=== PATIENT | female | born 2000 | race Caucasian/White ===

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

== ENCOUNTER 2018-02-25 21:44 | Emergency (ER) ==
[2018-02-25 21:58] VITALS: BP 111/70; TEMP 98.5; BMI 26.2
--- NOTE | 2018-02-25 23:33 | CT ---
EXAM: CT abdomen pelvis without intravenous contrast 02/25/2018. Sagittal and coronal reformatted i mages obtained HISTORY: Constipation COMPARISON: 11/09/2017 FINDINGS: The liver, gallbladder, adrenal glands and kidneys show no acute abnormality. The spleen and pancreas show no acute process. There is no bowel obstruction. The visualized portion of the appendix appears within normal limits. Unremarkable urinary bladder. Trace nonspecific free fluid. IMPRESSION: 1. No urinary or bowel obstruction. 2. The visualized portion of the appendix appears within normal limits 3. Trace nonspecific free fluid in the pelvis. 4. No CT evidence of constipation. No acute inflammatory process identified within the limitation o f a noncontrast enhanced examination.
--- NOTE | 2018-02-25 23:45 | ED.PDOC ---
General ED Provider: Dr. GIO FISHER-ER Chief Complaint: Constipation Stated Complaint: im having trouble with pooping Time Seen by Physician: 23:43 Mode of Arrival: Walk-In Information Source: Patient Exam Limitations: No limitations Nursing and Triage Documentation Reviewed and Agree: Yes Does patient meet sepsis criteria?: No System Inflammatory Response Syndrome: Not Applicable Sepsis Protocol: For patient's 13 years and over: Temp is 96.8 and below OR 101 and greater Pulse >90 BPM Resp >20/minute Acutely Altered Mental Status Are patient's symptoms suggestive of a new infection, such as: -Pneumonia -Skin, Soft Tissue -Endocarditis -UTI -Bone, Joint Infection -Implantable Device -Acute Abdominal Infection -Wound Infection -Meningitis -Blood Stream Catheter Infection -Unknown GI Complaint Exam - Abdominal Pain Complaint/Exam Onset: Gradual Symptoms Are: Still present Timing: Constant Initial Severity: Moderate Current Severity: Moderate Location of Pain: Diffuse Character: Reports: Dull, Aching Aggravating: Reports: None Associated Signs and Symptoms: Reports: Constipation. Denies: Diaphoresis, Fever, Cough, Chest pain, Dizziness, Back pain, Blood in stool, Dysuria, Urinary frequency, Decreased urine output, Decreased appetite, Vaginal bleeding , Vaginal discharge, Nausea, Vomiting, Diarrhea, Sore throat, Decreased activity Ovarian Torsion Risk Factors: Reports: Reproductive age Surgical Obstruction Risk Factors: Reports: None Abdominal Findings: Present: None Differential Diagnoses: Constipation Review of Systems - Review Of Systems Constitutional: Reports: No symptoms Eyes: Reports: No symptoms Ears, Nose, Mouth, Throat: Reports: No symptoms, Throat swelling Respiratory: Reports: No symptoms Cardiac: Reports: No symptoms GI: Reports: Abdominal pain, Constipated : Reports: No symptoms Musculoskeletal: Reports: No symptoms Skin: Reports: No symptoms Neurological: Reports: No symptoms Endocrine: Reports: No symptoms Hematologic/Lymphatic: Reports: No symptoms All Other Systems: Reviewed and Negative Past Medical History - Past Medical History Previously Healthy: Yes Endocrine: Reports: None Cardiovascular: Reports: None Respiratory: Reports: Pneumonia Hematological: Reports: None Gastrointestinal: Reports: None Genitourinary: Reports: None Neuro/Psych: Reports: None Musculoskeletal: Reports: None Cancer: Reports: None Last Menstrual Period: [id number] - Surgical History General Surgical History: Reports: None - Family History Family History: Reports: None - Social History Smoking Status: Current some day smoker Hx Substance Use: Yes (occasional cannabis) Alcohol Screening: None - Immunizations Tetanus Shot up to Date: Yes Physical Exam - Physical Exam Appearance: Well-appearing, No pain distress, Well-nourished Eyes: DEVYN, EOMI, Conjunctiva clear ENT: Ears normal, Nose normal, Oropharynx normal Neck: Supple Respiratory: Airway patent, Breath sounds clear, Breath sounds equal, Respirations nonlabored Cardiovascular: RRR, Pulses normal, No rub, No murmur GI/: Soft Musculoskeletal: Normal strength, ROM intact, No edema, No calf tenderness Skin: Warm, Dry, Normal color Neurological: Sensation intact, Motor intact, Reflexes intact, Cranial nerves intact, Alert, Oriented Psychiatric: Affect appropriate, Mood appropriate Interpretation - Radiology Interpretation Radiology Interpretation By: Radiologist Radiology Results: Negative Exam Interpreted: CT Scan Critical Care Note - Critical Care Note Total Time (mins): 0 Course - Course Hematology/Chemistry: 02/25/18 22:13 Orders, Labs, Meds: Lab Review 02/25/18 02/25/18 02/25/18 22:13 22:13 22:13 WBC 7.71 RBC 4.08 L Hgb 12.5 Hct 37.3 MCV 91.4 MCH 30.6 MCHC 33.5 RDW Coeff of [place] 11.9 Plt Count 242 Immature Gran % (Auto) 0.4 Neut % (Auto) 53.3 Lymph % (Auto) 31.8 [place] % (Auto) 11.5 H Eos % (Auto) 2.6 Baso % (Auto) 0.4 Immature Gran # (Auto) 0.0 Neut # (Auto) 4.1 Lymph # (Auto) 2.5 [place] # (Auto) 0.9 Eos # (Auto) 0.2 Baso # (Auto) 0.0 TSH 1.710 Serum , Qual Negative Orders Category Date Time Status CBC W/ AUTO DIFF Stat LAB 02/25/18 22:13 Completed SERUM Stat LAB 02/25/18 22:13 Completed THYROID STIMULATING HORMONE Stat LAB 02/25/18 22:[address] ABDOMEN/PELVIS WO CONTRAST Stat RADS 02/25/18 22:05 Completed Vital Signs: Temp Pulse Resp BP Pulse Ox 02/25/18 21:45 98.5 F 68 16 111/70 98 Departure - Departure Time of Disposition: 23:45 Disposition: HOME SELF-CARE Discharge Problem: Constipation Instructions: High Fiber Diet (ED), Constipation (ED) Condition: Good Pt referred to PMD for follow-up: No IPMP verified?: No Additional Instructions: miralax 17gra in 8oz of juice bid---f/u with pcsp Allergies/Adverse Reactions: Allergies azithromycin Adverse Reaction (Verified 02/25/18 21:55) Rash Home Medications: Ambulatory Orders 1 [No Reported Medications] 02/25/18 Disposition Discussed With: Patient
== END 2018-02-25 23:50 | disposition home or self-care (01) ==
LOC: ED 21:44
DX: K59.00 Constipation, unspecified (principal); F17.210 Nicotine dependence, cigarettes, uncomplicated
CPT/HCPCS: 36415; 84443; 84703; 85025; 99282

== ENCOUNTER 2018-06-23 09:10 | Emergency (ER) ==
[2018-06-23 09:14] VITALS: BP 134/81; TEMP 97.7; BMI 29.2
--- NOTE | 2018-06-23 09:42 | ED.PDOC ---
General ED Provider: Dr. GIO PARKER Chief Complaint: Respiratory Complaint Stated Complaint: Lt Ear painful; Sore throat; cough productive of greenish colored sputum . Time Seen by Physician: 09:30 Mode of Arrival: Walk-In Information Source: Patient Exam Limitations: No limitations Nursing and Triage Documentation Reviewed and Agree: Yes Does patient meet sepsis criteria?: No System Inflammatory Response Syndrome: Not Applicable Sepsis Protocol: For patient's 13 years and over: Temp is 96.8 and below OR 101 and greater Pulse >90 BPM Resp >20/minute Acutely Altered Mental Status Are patient's symptoms suggestive of a new infection, such as: -Pneumonia -Skin, Soft Tissue -Endocarditis -UTI -Bone, Joint Infection -Implantable Device -Acute Abdominal Infection -Wound Infection -Meningitis -Blood Stream Catheter Infection -Unknown EENT Complaint Exam - Ear Complaint/Exam Onset/Duration: 1 day Symptoms Are: Still present Timing: Constant Initial Severity: Moderate Current Severity: Moderate Character: Reports: Sharp pain, Aching pain Aggravating: Reports: Tugging on ear Alleviating: Reports: None Associated Signs and Symptoms: Reports: Sore throat, URI symptoms, Pain to external ear Related History: Denies: Similar Episode Ear Surgical History: None Vesicles to External Pinna: No Vesicles to Tragus: No TMJ Tenderness: None Mastoid Tenderness: None Tragal Tenderness: Left External Canal: Tenderness Material in Canal: Absent: Cerumen, Discharge, Foreign body Tympanic Membrane: Dullness Ear: 1 - sl erythrema and tenderness Differential Diagnoses: Cellulitis, Otitis Externa Review of Systems - Review Of Systems Constitutional: Reports: No symptoms Eyes: Reports: No symptoms Ears, Nose, Mouth, Throat: Reports: Ear pain Respiratory: Reports: No symptoms Cardiac: Reports: No symptoms GI: Reports: No symptoms : Reports: No symptoms Musculoskeletal: Reports: No symptoms Skin: Reports: No symptoms Neurological: Reports: No symptoms Endocrine: Reports: No symptoms Hematologic/Lymphatic: Reports: No symptoms All Other Systems: Reviewed and Negative Past Medical History - Past Medical History Previously Healthy: Yes Endocrine: Reports: None Cardiovascular: Reports: None Respiratory: Reports: Pneumonia Hematological: Reports: None Gastrointestinal: Reports: None Genitourinary: Reports: None Neuro/Psych: Reports: None Musculoskeletal: Reports: Back Pain Cancer: Reports: None Last Menstrual Period: N/A - Surgical History General Surgical History: Reports: None - Family History Family History: Reports: None - Social History Smoking Status: Current some day smoker Hx Substance Use: Yes (occasional cannabis) Alcohol Screening: None - Immunizations Tetanus Shot up to Date: Yes Physical Exam - Physical Exam Appearance: Ill-appearing Ill-appearing: Mild Pain Distress: Mild Eyes: DEVYN, EOMI, Conjunctiva clear ENT: Erythema (external canal) Neck: Supple Respiratory: Airway patent Cardiovascular: RRR, Pulses normal, No rub, No murmur GI/: Soft, Nontender, No masses, Bowel sounds normal, No Organomegaly Musculoskeletal: Normal strength, ROM intact, No edema, No calf tenderness Skin: Warm Neurological: Sensation intact, Alert to pain Psychiatric: Affect appropriate, Mood appropriate Interpretation - Radiology Interpretation Radiology Interpretation By: Radiologist (RE) Radiology Results: No acute changes Xray Comments: Reviewed -no abnormality Critical Care Note - Critical Care Note Total Time (mins): 0 Course - Course Hematology/Chemistry: 06/23/18 09:55 06/23/18 09:55 Vital Signs: Temp Pulse Resp BP Pulse Ox 06/23/18 09:10 97.7 F 93 H 22 134/81 98 Departure - Departure Time of Disposition: 11:05 Disposition: HOME SELF-CARE Discharge Problem: Otalgia of left ear, Cellulitis of external ear Instructions: Otitis Externa (ED), Warm Compress or Soak (ED) Condition: Good Pt referred to PMD for follow-up: Yes IPMP verified?: No Additional Instructions: Cleanse External Ear with warm water and soap Antibiotics as directedd See PCP in 1 wk or earlier if no improvement/worsens Prescriptions: Cephalexin [Keflex] 500 mg PO BID #14 capsule Allergies/Adverse Reactions: Allergies azithromycin Adverse Reaction (Verified 05/13/18 21:50) Rash Home Medications: Ambulatory Orders Cephalexin [Keflex] 500 mg PO BID #14 capsule 06/23/18 Disposition Discussed With: Patient
[2018-06-23 10:19] LABS: URINE PREGNANCY TEST NEGATIVE (NEGATIVE)
--- NOTE | 2018-06-23 10:39 | DI ---
EXAM: Two views of the chest. History: Productive cough. Comparison: Chest radiograph 11/09/2017 Findings: Heart size is normal. No focal consolidation. No appreciable pleural fluid and no pneumo thorax. No acute osseous abnormalities. Impression: No acute cardiopulmonary process
== END 2018-06-23 11:19 | disposition home or self-care (01) ==
LOC: ED 09:10
DX: H60.12 Cellulitis of left external ear (principal); H92.02 Otalgia, left ear; J02.9 Acute pharyngitis, unspecified; R05 Cough; F17.210 Nicotine dependence, cigarettes, uncomplicated
CPT/HCPCS: 36415; 80053; 81001; 81025; 85025; 85651; 86308; 87086; 87186; 87502; 87651; 87801; 99283

== ENCOUNTER 2018-08-08 22:00 | Emergency (ER) ==
[2018-08-08 22:08] VITALS: BP 120/79; TEMP 98.7
--- NOTE | 2018-08-08 23:23 | ED.PDOC ---
General ED Provider: Dr. BREANNE FERRIS Chief Complaint: Nausea/Vomiting Stated Complaint: serial bowel novements almost immediately after eating,formed to loose. Time Seen by Physician: 23:23 Mode of Arrival: Walk-In Information Source: Patient Exam Limitations: No limitations Referred to ED by: Other Nursing and Triage Documentation Reviewed and Agree: Yes Does patient meet sepsis criteria?: No System Inflammatory Response Syndrome: Not Applicable Sepsis Protocol: For patient's 13 years and over: Temp is 96.8 and below OR 101 and greater Pulse >90 BPM Resp >20/minute Acutely Altered Mental Status Are patient's symptoms suggestive of a new infection, such as: -Pneumonia -Skin, Soft Tissue -Endocarditis -UTI -Bone, Joint Infection -Implantable Device -Acute Abdominal Infection -Wound Infection -Meningitis -Blood Stream Catheter Infection -Unknown GI Complaint Exam - Vomiting/Diarrhea Complaint/Exam Onset/Duration: few days Symptoms Are: Still present Initial Severity: Moderate Current Severity: Mild Aggravating: Reports: Food Alleviating: Reports: NPO Associated Signs and Symptoms: Reports: Abdominal pain Related History: Reports: Similar episode Last Oral Intake: unsure because no apetite Last Bowel Movement: today Menses: Regular Recent Positive Test: No Use of Oral Contraceptives: No Non-GI Risk Factors: Reports: None Surgical Obstruction Risk Factors: Reports: None Related Surgical History: Reports: None Abdominal Findings: Present: None Kussmaul Respirations Present: No Differential Diagnoses: Cholelithiasis, Gastritis, Viral Gastroenteritis, Bacterial Gastroenteritis, Hepatitis Review of Systems - Review Of Systems Constitutional: Reports: Loss of appetite Eyes: Reports: No symptoms Ears, Nose, Mouth, Throat: Reports: No symptoms Respiratory: Reports: No symptoms Cardiac: Reports: No symptoms GI: Reports: Nausea, Rectal bleeding : Reports: No symptoms Musculoskeletal: Reports: No symptoms Neurological: Reports: No symptoms Endocrine: Reports: No symptoms Hematologic/Lymphatic: Reports: No symptoms All Other Systems: Reviewed and Negative Past Medical History - Past Medical History Previously Healthy: Yes Endocrine: Reports: None Cardiovascular: Reports: None Respiratory: Reports: Pneumonia Hematological: Reports: None Gastrointestinal: Reports: None Genitourinary: Reports: None Neuro/Psych: Reports: None Musculoskeletal: Reports: Back Pain Cancer: Reports: None Last Menstrual Period: 1 week ago - Surgical History General Surgical History: Reports: None - Family History Family History: Reports: None - Social History Smoking Status: Dips snuff Hx Substance Use: Yes (occasional cannabis in past) Alcohol Screening: None - Immunizations Tetanus Shot up to Date: Yes Physical Exam - Physical Exam Appearance: Well-appearing Ill-appearing: None Pain Distress: None Eyes: DEVYN ENT: Ears normal Neck: Supple Respiratory: Airway patent Cardiovascular: RRR GI/: Soft Musculoskeletal: Normal strength Skin: Warm Neurological: Sensation intact Re-Evaluation - Re-Evaluation Time of Re-Evaluation: 00:41 Status: Unchanged Vital Signs Stable: Yes Appearance: NAD Lungs: Clear Skin: Warm and Dry Neuro: Alert and Oriented X3 CV: RRR Additional Comments: Rx for Cipro 500 bid x 14 days&Fluconazole 400mg daily PO.Further test at - Re-Evaluation Additional Comments: Further testing at am outpatient/CD4,HIV RNA/PCR and Hepatitis. Critical Care Note - Critical Care Note Total Time (mins): 0 Course - Course Hematology/Chemistry: 08/08/18 20:50 08/08/18 20:50 Orders, Labs, Meds: Lab Review 08/08/18 08/08/18 20:50 20:50 WBC 6.72 RBC 4.04 L Hgb 12.1 Hct 36.9 L MCV 91.3 MCH 30.0 MCHC 32.8 RDW Coeff of [place] 12.1 Plt Count 199 Immature Gran % (Auto) 0.4 Neut % (Auto) 79.7 Lymph % (Auto) 10.1 [place] % (Auto) 8.2 Eos % (Auto) 1.3 Baso % (Auto) 0.3 Immature Gran # (Auto) 0.0 Neut # (Auto) 5.4 Lymph # (Auto) 0.7 [place] # (Auto) 0.6 Eos # (Auto) 0.1 Baso # (Auto) 0.0 Sodium 136.9 Potassium 3.76 Chloride 101.8 Carbon Dioxide 28.0 Anion Gap 10.86 BUN 12.1 Creatinine 0.55 L Estimated GFR (MDRD) 141.00 BUN/Creatinine Ratio 22.00 Glucose 92.7 Calcium 8.65 Total Bilirubin 0.61 AST 26.8 ALT 18.3 Alkaline Phosphatase 54.4 Total Protein 6.88 Albumin 3.99 Globulin 2.89 Albumin/Globulin Ratio 1.38 Orders Category Date Time Status IV [ED IV/MEDIPORT/POWERPORT] .ONCE EMERGENCY 08/08/18 23:32 Active CBC W/ AUTO DIFF Stat LAB 08/08/18 20:50 Completed COMPREHENSIVE METABOLIC PANEL Stat LAB 08/08/18 20:50 Completed HIV 4TH GENERATION Stat LAB 08/09/18 00:30 Received 0.9 % Sodium Chloride [Saline Flush] MEDS 08/08/18 23:32 Ordered 1 syr IVF PRN PRN Acetaminophen [Tylenol] MEDS 08/09/18 00:04 Discontinued 650 mg PO ONCE STA Ondansetron HCl/Pf [Zofran 4 mg/2 ml] MEDS 08/09/18 00:06 Discontinued 4 mg IVP ONCE STA Sodium Chloride 0.9% [Sodium Chloride] 1,000 ml MEDS 08/08/18 23:[address] ABDOMEN/PELVIS WO CONTRAST Stat RADS 08/09/18 23:35 Taken Medications Generic Name Dose Route Start Last Admin Trade Name Freq PRN Reason Stop Dose Admin Sodium Chloride 1 syr 08/08/18 23:32 08/08/18 23:36 Saline Flush IVF 1 syr PRN PRN Administration To flush IV Discontinued Medications Generic Name Dose Route Start Last Admin Trade Name Freq PRN Reason Stop Dose Admin Acetaminophen 650 mg 08/09/18 00:04 08/09/18 00:15 Tylenol PO 08/09/18 00:05 650 mg ONCE STA Administration Sodium Chloride 1,000 mls @ 1,000 mls/hr 08/08/18 23:32 08/08/18 23:36 Sodium Chloride IV 08/09/18 00:31 1,000 mls/hr BOLUS STA Administration Ondansetron HCl 4 mg 08/09/18 00:06 08/09/18 00:15 Zofran 4 Mg/2 Ml IVP 08/09/18 00:07 4 mg ONCE STA Administration Vital Signs: Temp Pulse Resp BP Pulse Ox 08/08/18 22:01 98.7 F 83 20 120/79 98 Departure - Departure Time of Disposition: 00:54 Disposition: HOME SELF-CARE Discharge Problem: Gastroenteritis Instructions: Gastroenteritis (ED) Condition: Fair Pt referred to PMD for follow-up: Yes (Immunodeficiency and HBC testing [facility].) IPMP verified?: No (Cipro and Fluconazole Rx to take with.) Allergies/Adverse Reactions: Allergies azithromycin Adverse Reaction (Verified 08/08/18 22:08) Rash
[2018-08-08] MEDS ORDERED: SODIUM CHLORIDE 1,000 ML IV STA (23:32)
[2018-08-09] MEDS ORDERED: TYLENOL PO STA (00:04)
[2018-08-09] MEDS ORDERED: ZOFRAN 4 MG/2 ML IVP STA (00:06)
--- NOTE | 2018-08-09 00:49 | CT ---
Exam: CT of the abdomen and pelvis without contrast History: Abdominal pain Technique: [address] of the abdomen and pelvis without intravascular contrast FINDINGS: The lung bases are clear. No significant liver abnormality. The adrenals, pancreas and s pleen are unremarkable. The stomach and hiatus are unremarkable.The gallbladder appears normal. Kid neys and proximal collecting system are unremarkable. The appendix is normal. Bowel loops demonstra te normal caliber. No inflamatory change seen in the mesentery or retroperitoneum. The vascular str uctures appear normal by noncontrast CT. Pelvic genitourinary structures appear normal. Pelvic bowel loops are unremarkable. No inflammatory change in the pelvic fat. No acute abnormality of the abdominal or pelvic skeleton. Impression: 1. No inflammatory process, bowel or urinary obstruction is seen. No acute findings of the abdomen or pelvis.
== END 2018-08-09 01:10 | disposition home or self-care (01) ==
LOC: ED 22:00
DX: K52.9 Noninfective gastroenteritis and colitis, unspecified (principal); Z72.0 Tobacco use
CPT/HCPCS: 36415; 80053; 85025; 87389; 96361; 96374; 96375; 99283

== ENCOUNTER 2018-08-11 12:29 | Outpatient (CLI) ==
--- NOTE | 2018-08-11 13:16 | US ---
EXAM: ULTRASOUND ABDOMEN LIMITED HISTORY: Right upper quadrant pain FINDINGS: Ultrasound abdomen, limited. Mayer-scale ultrasound and color Doppler was performed. Live r size was measured at about 13 cm, within normal limits. The liver parenchyma demonstrated normal so nographic appearance without evidence of intrahepatic biliary dilatation or focal lesion. Patent and hepatopedal main portal vein. No evidence of gallbladder stones or sludge. Gallbladder wall thickness was normal at 0.15 centimete rs and the common duct diameter normal at 0.24 centimeters. The visualized portions of the pancreas appeared unremarkable. IMPRESSION: Findings within normal limits.
== END 2018-08-11 12:30 | disposition home or self-care (01) ==
LOC: RAD 12:29
PROVIDERS: ATTEND Family Medicine
DX: R10.11 Right upper quadrant pain (principal); R10.84 Generalized abdominal pain; N94.9 Unspecified condition associated with female genital organs and menstrual cycle
CPT/HCPCS: 36415; 81001; 83690; 87800

== ENCOUNTER 2018-08-12 09:20 | Outpatient (CLI) ==
--- NOTE | 2018-08-12 10:31 | CT ---
EXAM: CT ABDOMEN AND PELVIS HISTORY: Generalized abdominal pain, diarrhea and vomiting TECHNIQUE: CT abdomen and pelvis with intravenous contrast. Images were reconstructed using 5 mm se ction thickness. Reformations were prepared. 75 mL Omnipaque. COMPARISON: 08/09/2018 FINDINGS: Liver and spleen are within normal limits. Gallbladder, pancreas and adrenal glands are no rmal. Normal enhancement of the kidneys without hydronephrosis. Normal abdominal aorta. Stomach is within. Normal appendix. There is mild fluid distension of both large and small bowel. Uterus and urinary bladder are within normal limits. No ascites. Ventral abdominal wall is intact without herniation. Bones appear appropriate for age. Lung bases a re clear. There is no pneumoperitoneum. IMPRESSION: Findings most consistent with mild enterocolitis.
== END 2018-08-12 09:21 | disposition home or self-care (01) ==
LOC: RAD 09:20
PROVIDERS: ATTEND Family Medicine
DX: R10.84 Generalized abdominal pain (principal); K52.9 Noninfective gastroenteritis and colitis, unspecified; Z83.79 Family history of other diseases of the digestive system
CPT/HCPCS: 36415; 83520; 85651; 86140; 86256

== ENCOUNTER 2018-08-12 13:51 | Outpatient (CLI) | END 2018-08-12 13:52 | disposition home or self-care (01) | LOC: RHC-LAB 13:51 → FCC-LAB 13:52 | PROVIDERS: ATTEND Family Medicine | DX: K52.9 Noninfective gastroenteritis and colitis, unspecified (principal); Z83.79 Family history of other diseases of the digestive system | CPT/HCPCS: 36415; 83520; 85651; 86140; 86256 ==

== ENCOUNTER 2018-10-28 08:37 | Outpatient (CLI) | END 2018-10-28 08:38 | disposition home or self-care (01) | LOC: RHC-LAB 08:37 | PROVIDERS: ATTEND Family Medicine | DX: K52.9 Noninfective gastroenteritis and colitis, unspecified (principal) | CPT/HCPCS: 87086 ==